=== PATIENT | male | born 1975 | race Caucasian/White ===

== ENCOUNTER 2019-08-03 10:01 | Emergency (ER) | payer MEDICAID ==
[~2019-08-03] VITALS: Ht 172.7 cm; Wt 57.0 kg
[2019-08-03] MEDS ORDERED: SULF1TAB49 PO (11:24)
[2019-08-03] MEDS ORDERED: PHEN100C4 PO (11:24)
[2019-08-03] MEDS ORDERED: CEPH-572 PO (11:24)
== END 2019-08-03 11:45 | disposition home or self-care (01) ==
LOC: ER 10:04
DX: L02.414 Cutaneous abscess of left upper limb (principal); G40.909 Epilepsy, unspecified, not intractable, without status epilepticus; Z76.0 Encounter for issue of repeat prescription; F12.90 Cannabis use, unspecified, uncomplicated; Z88.5 Allergy status to narcotic agent
CPT/HCPCS: 99283